=== PATIENT | female | born 1995 | race African-American/Black ===

== ENCOUNTER 2017-03-28 03:41 | Emergency (ER) | payer SELFPAY ==
[~2017-03-28] VITALS: Ht 165.1 cm; Wt 70.0 kg
[2017-03-28] MEDS ORDERED: CYCLOBENZAPRINE 10MG TABLET PO ONE (07:45)
[2017-03-28] MEDS ORDERED: IBUPROFEN 600MG TABLET PO ONE (07:45)
[2017-03-28 08:21] VITALS: BP 126/78
== END 2017-03-28 08:25 | disposition home or self-care (01) ==
LOC: ER 03:44
DX: R51 Headache (principal); F12.10 Cannabis abuse, uncomplicated; V49.9XXA Car occupant (driver) (passenger) injured in unspecified traffic accident, initial encounter; Y93.89 Activity, other specified; Y99.8 Other external cause status; Y92.410 Unspecified street and highway as the place of occurrence of the external cause
CPT/HCPCS: 99283